=== PATIENT | female | born 1975 | race Caucasian/White ===

== ENCOUNTER 2016-12-04 17:45 | Emergency (ER) | payer MEDICAID ==
[~2016-12-04] VITALS: Ht 162.6 cm; Wt 69.6 kg
[2016-12-04 20:55] LABS: BASOPHIL % 0.4 % (0-2)
[2016-12-04 20:56] LABS: PLATELET COUNT 478 x10^3mcL (130-400)
[2016-12-04 21:05] LABS: CALCIUM 8.9 mg/dL (8.5-10.1); CARBON DIOXIDE 24.7 mmol/L (21-32); CHLORIDE SERUM 104 mmol/L (98-107); CREATININE SERUM 0.7 mg/dL (0.6-1.0); GFR1 > 60 mL/min; GLUCOSE SERUM 92 mg/dL (74-106); POTASSIUM SERUM 3.8 mmol/L (3.5-5.1); SODIUM SERUM 140 mmol/L (136-145)
[2016-12-04 21:09] LABS: ALBUMIN 3.8 g/dL (3.4-5.0); ALKALINE PHOSPHATASE 74 U/L (46-116); ALT/SGPT 21 U/L (14-59); AMYLASE 73 U/L (25-115); AST/SGOT 16 U/L (15-37); BILIRUBIN TOTAL 0.3 mg/dL (0.20-1.00); LIPASE 212 IU/L (73-393)
[2016-12-04 21:14] LABS: TOTAL PROTEIN, SERUM 8.5 g/dL (6.4-8.2)
[2016-12-04 21:46] VITALS: BP 139/85
== END 2016-12-04 21:48 | disposition home or self-care (01) ==
LOC: ED 17:45
PROVIDERS: Emergency Medicine
DX: R10.13 Epigastric pain (principal); R10.31 Right lower quadrant pain; R11.0 Nausea; R19.7 Diarrhea, unspecified
CPT/HCPCS: 36415; 83880; J1885; Q0092; Q0162